=== PATIENT | female | born 1950 | race Caucasian/White ===

== ENCOUNTER 2017-05-18 23:07 | Emergency (ER) | payer MEDICARE, MEDICAID ==
[~2017-05-18] VITALS: Ht 160 cm; Wt 65.8 kg
[~2017-05-18 23:07] MED LIST: ASPIR 8181 MG ORAL; ASPIRIN325 MG ORAL; ATORVASTATIN CA80 MG ORAL; BENAZEPRIL HCL20 MG ORAL; DIABETA5 MG ORAL; IBUPROFEN600 MG ORAL; KEFLEX500 MG ORAL; METFORMIN HCL500 M1 ORAL; METOPROLOL TART50 MG ORAL; NORCO 5-325 TA1 EACH ORAL; OMEPRAZOLE20 M2 ORAL; PLAVIX75 MG ORAL; PROTONIX40 MG ORAL; SUCRALFATE1 GM ORAL; TENORMIN50 MG ORAL
[2017-05-18 23:20] VITALS: BP 153/70
[2017-05-19 00:20] VITALS: BP 153/70
--- NOTE | 2017-05-19 00:32 | Emergency Room Report ---
History of Present Illness General Chief Complaint: Upper Extremity Injury Source: Patient Present Illness HPI 66YOF with hematoma to left hand over middle knuckle after "slightly hitting it on door" earlier. Denies pain States swelling got bigger than stabilized On plavix Denies reduced ROM of hand, fingers Denies numbness, tingling of hand, fingers Allergies: Coded Allergies: CIMETIDINE (Verified Allergy, Mild, SWELLING, 04/12/13) POLYETHYLENE GLYCOL (Unverified Adverse Reaction, Severe, TACHYCARDIA, 03/26) POLYETHYLENE GLYCOL 3350 (Unverified Adverse Reaction, Severe, TACHYCARDIA , 03/26/15) POTASSIUM CHLORIDE (Unverified Adverse Reaction, Severe, TACHYCARDIA, ) SODIUM (Unverified Adverse Reaction, Severe, TACHYCARDIA, 03/26/15) SODIUM BICARBONATE (Unverified Adverse Reaction, Severe, TACHYCARDIA, ) SODIUM SULFATE (Unverified Adverse Reaction, Severe, TACHYCARDIA, 03/26/15) SODIUM SULFATE ANHYDROUS (Unverified Adverse Reaction, Severe, TACHYCARDIA , 03/26/15) Patient History Past Medical History: see triage record, old chart reviewed Past Surgical History: none Pertinent Family History: none Social History: Denies: alcohol use, drug use, smoking Now: No Immunizations: UTD Reviewed Nursing Documentation: PMH: Agreed, PSxH: Agreed Nursing Documentation-PMH Hx Cardiac Problems: Yes - 4stents Hx Hypertension: Yes Hx Diabetes: Yes Hx Cancer: Yes - colon ca Review of Systems All Other Systems: negative except mentioned in HPI Physical Exam Vital Signs Date Time Temp Pulse Resp B/P Pulse Ox O2 Delivery O2 Flow Rate FiO2 05/18/17 23:18 98.1 72 16 153/70 97 Room Air Sp02 EP Interpretation: reviewed, normal General Appearance: normal inspection, well appearing, no apparent distress, alert, GCS 15, non-toxic Head: normocephalic, atraumatic Eyes: bilateral eye EOMI, bilateral eye PERRL ENT: normal ENT inspection, hearing grossly normal, normal voice Neck: normal inspection, full range of motion, supple, no bony tend Respiratory: normal inspection, lungs clear, normal breath sounds, no respiratory distress, no retraction, no wheezing Cardiovascular #1: regular rate, rhythm, no edema Gastrointestinal: normal inspection, normal bowel sounds, non tender, soft, no guarding, no hernia Genitourinary: no CVA tenderness Musculoskeletal: other - Left hand: 3cm hematoma overlyign dorsal aspect of middle knuckle. Mild ttp to hematoma but no palpable ttp to hand or fingers. ROM intact. 2++ distal radius pulse Neurologic: normal inspection, alert, oriented x3, responsive, customer service officer III-XII nml as tested, motor strength/tone normal, speech normal Psychiatric: normal inspection, judgement/insight normal, mood/affect normal Skin: normal inspection, normal color, no rash Medical Decision Making Diagnostic Impression: Primary Impression: Hematoma and contusion ER Course Extremity hematoma No compartment syndrome Xray negative for fx Advised pressure, ICE Given TREY Has PMD followup in 2 days Advised return to ER for worsening symptoms Last Vital Signs Date Time Temp Pulse Resp B/P Pulse Ox O2 Delivery O2 Flow Rate FiO2 05/18/17 23:18 98.1 72 16 153/70 97 Room Air Status: improved Disposition: HOME, SELF-CARE Condition: Improved Patient Instructions: Hand Contusion, [id number] Additional Instructions: - Apply ice and pressure to hand 3x a day - Continue taking Plavix - Follow up with your primary doctor tomorrow TAYLOR CHAPARRO M.D. May 19, 2017 00:32
--- NOTE | 2017-05-19 11:50 | Diagnostic Imaging Report ---
Indications: PAIN Technique: 3 views of the left hand Comparison: None Findings: No acute fractures. No dislocations. Joint spaces are preserved. No radiopaque foreign body. Normal mineralization. Impression: No acute process
== END 2017-05-19 00:20 | disposition home or self-care (01) ==
LOC: EMR 23:38
DX: S60.222A Contusion of left hand, initial encounter (principal); W22.8XXA Striking against or struck by other objects, initial encounter; Y92.89 Other specified places as the place of occurrence of the external cause
CPT/HCPCS: 99283

== ENCOUNTER 2019-03-05 17:58 | Emergency (ER) | payer MEDICARE, MEDICAID ==
[~2019-03-05] VITALS: Ht 152.4 cm; Wt 61.2 kg
--- NOTE | 2019-03-05 18:02 | NUR ---
ED Nurse Note: Pt came into the ER w/ complaints of back pain x 2 days. According to pt, she was bending down and that is when the pain started. Pt is complaining of 10/10 pain. Non radiating. Pt is A + O x4. Ambulatory. Skin warm to touch.
[2019-03-05 18:15] VITALS: BP 171/55
--- NOTE | 2019-03-05 18:20 | Emergency Room Report ---
History of Present Illness General Chief Complaint: Lower Back Pain or Injury Source: Patient Present Illness HPI 68-year-old female p/w back pain Patient states pain started when he bent down to get something. Pain is localized to left lower back, sharp in nature, radiating down leg. Movement worsens pain. She did take Tylenol around 1 PM with some relief. No numbness or weakness or legs. She has had this left- sided back pain in the past No other trauma Patient has experienced this similar pain in the past. Denies trauma. Denies lower extremity weakness/numbness, no bowel/bladder retention or incontinence, saddle anesthesia. Denies fever, chills, abdominal pain, n/v, dysuria/hematuria. No history of IVDA Allergies: Coded Allergies: CIMETIDINE (Verified Allergy, Mild, SWELLING, 04/12/13) POLYETHYLENE GLYCOL (Unverified Adverse Reaction, Severe, TACHYCARDIA, 03/26) POLYETHYLENE GLYCOL 3350 (Unverified Adverse Reaction, Severe, TACHYCARDIA , 03/26/15) POTASSIUM CHLORIDE (Unverified Adverse Reaction, Severe, TACHYCARDIA, ) SODIUM (Unverified Adverse Reaction, Severe, TACHYCARDIA, 03/26/15) SODIUM BICARBONATE (Unverified Adverse Reaction, Severe, TACHYCARDIA, ) SODIUM SULFATE (Unverified Adverse Reaction, Severe, TACHYCARDIA, 03/26/15) SODIUM SULFATE ANHYDROUS (Unverified Adverse Reaction, Severe, TACHYCARDIA , 03/26/15) Patient History Past Medical History: see triage record Past Surgical History: none Pertinent Family History: none Reviewed Nursing Documentation: PMH: Agreed; PSxH: Agreed Nursing Documentation-PMH Past Medical History: No History, Except For Hx Cardiac Problems: Yes - 11 stents Hx Hypertension: Yes Hx Diabetes: Yes Hx Cancer: Yes - colon ca,left breast ca Review of Systems All Other Systems: negative except mentioned in HPI Physical Exam Vital Signs Date Time Temp Pulse Resp B/P (MAP) Pulse Ox O2 Delivery O2 Flow Rate FiO2 03/05/19 18:09 97.5 67 12 100 Room Air 03/05/19 18:15 171/55 Sp02 EP Interpretation: reviewed, normal General Appearance: alert, GCS 15, non-toxic, moderate distress Head: normocephalic, atraumatic Eyes: bilateral eye normal inspection, bilateral eye PERRL, bilateral eye EOMI ENT: normal ENT inspection, normal pharynx, normal voice, moist mucus membranes Neck: normal inspection, full range of motion, supple Respiratory: normal inspection, lungs clear, normal breath sounds, no respiratory distress, no retraction, no wheezing, speaking full sentences, chest symmetrical Cardiovascular #1: normal inspection, regular rate, rhythm, normal capillary refill Cardiovascular #2: 2+ radial (R), 2+ radial (L) Gastrointestinal: normal inspection, non tender, soft, non-distended, no guarding Musculoskeletal: other - Left lower lumbar paraspinal tenderness no midline tenderness Neurologic: normal inspection, alert, oriented x3, responsive, motor strength/ tone normal, sensory intact, normal gait, speech normal Psychiatric: normal inspection, judgement/insight normal, memory normal Skin: normal inspection, normal color, no rash, warm/dry, well hydrated, normal turgor Medical Decision Making Diagnostic Impression: Primary Impression: Back pain ER Course 68-year-old female p/w back pain DDX: Likely musculoskeletal back pain vs. muscular strain vs. sciatica Serious diagnoses such as cord compression, epidural abscess is unlikely in this patient given the clinical scenario and abscess of neurological symptoms or findings. Patient appears nontoxic. Plan: Tylenol and Robaxin and x-ray ER course: Patient has remained nontoxic appearing and ambulatory in the ED. Pain improved w/ medications she wants her hgb checked as well as magnesium. mg slightly low but she is on meds Disposition: Patient will be discharged to home with prescription of robaxin. Patient cautioned of the effects of robaxin including possible impairment of physical or mental abilities. Patient was instructed to refrain from operating machinery or driving. Patient is also cautioned on the GI effects of motrin and to take sparingly. Patient verbalized understanding. Strict precautions discussed with patient on when to emergently return to the ED which includes severe/worsening back pain, leg weakness/numbness, urinary retention/incontinence, fever or chills, which may indicate severe illness. Patient is to follow up with their PMD within 5 days. Patient agrees with plan. Please note that this Emergency Department Report was dictated using [employer] operator technology software, occasionally this can lead to erroneous entry secondary to interpretation by the dictation equipment. Laboratory Tests Test 03/05/19 19:25 03/05/19 19:55 Sodium Level 130 MMOL/L (136-145) L Potassium Level 4.0 MMOL/L (3.5-5.1) Chloride Level 98 MMOL/L (98-107) Carbon Dioxide Level 30 MMOL/L (21-32) Anion Gap 2 mmol/L (5-15) L Blood Urea Nitrogen 21 mg/dL (7-18) H Creatinine 1.2 MG/DL (0.55-1.30) Estimate Glomerular Filtration Rate 44.8 mL/min (>60) Glucose Level 110 MG/DL (74-106) H Calcium Level 10.3 MG/DL (8.5-10.1) H Magnesium Level 1.5 MG/DL (1.8-2.4) L Total Bilirubin 0.7 MG/DL (0.2-1.0) Aspartate Amino Transferase (AST) 16 U/L (15-37) Alanine Aminotransferase (ALT) 33 U/L (12-78) Alkaline Phosphatase 52 U/L (46-116) Total Protein 7.4 G/DL (6.4-8.2) Albumin 3.9 G/DL (3.4-5.0) Globulin 3.5 g/dL Albumin/Globulin Ratio 1.1 (1.0-2.7) White Blood Count 7.4 K/UL (4.8-10.8) Red Blood Count 3.77 M/UL (4.20-5.40) L Hemoglobin 10.9 G/DL (12.0-16.0) L Hematocrit 32.1 % (37.0-47.0) L Mean Corpuscular Volume 85 FL (80-99) Mean Corpuscular Hemoglobin 28.8 PG (27.0-31.0) Mean Corpuscular Hemoglobin Concent 33.9 G/DL (32.0-36.0) Red Cell Distribution Width 11.1 % (11.6-14.8) L Platelet Count 234 K/UL (150-450) Mean Platelet Volume 6.0 FL (6.5-10.1) L Neutrophils (%) (Auto) 57.6 % (45.0-75.0) Lymphocytes (%) (Auto) 28.5 % (20.0-45.0) Monocytes (%) (Auto) 8.9 % (1.0-10.0) Eosinophils (%) (Auto) 3.9 % (0.0-3.0) H Basophils (%) (Auto) 1.1 % (0.0-2.0) Last Vital Signs Date Time Temp Pulse Resp B/P (MAP) Pulse Ox O2 Delivery O2 Flow Rate FiO2 03/05/19 18:15 97.6 61 11 171/55 100 Room Air Disposition: HOME, SELF-CARE Condition: Stable Scripts Methocarbamol* (ROBAXIN-750*) 750 Mg Tablet 750 MG PO QID, #28 TAB 0 Refills Prov: Alexx Solis M.D. 03/05/19 Patient Instructions: Back Pain, Adult Alexx Solis M.D. March 05, 2019 18:20
[2019-03-05] MEDS ORDERED: Methocarbamol 750mg tab ORAL ONE (18:30)
[2019-03-05] MEDS ORDERED: Acetaminophen 500mg (ES) tab ORAL ONE (18:30)
[2019-03-05] MEDS ORDERED: ROBAXIN-750750 MG PO (18:33)
--- NOTE | 2019-03-05 18:49 | NUR ---
ED Nurse Note: Pt came back from radiology.
--- NOTE | 2019-03-05 18:57 | NUR ---
HAND-OFF: Report given to BLAIRE Cerrato.
[2019-03-05 20:10] LABS: BASOPHILS % (AUTO) 1.1 % (0.0-2.0); EOSINOPHILS % (AUTO) 3.9 % (0.0-3.0); HEMATOCRIT 32.1 % (37.0-47.0); HEMOGLOBIN 10.9 G/DL (12.0-16.0); LYMPHOCYTES % (AUTO) 28.5 % (20.0-45.0); MEAN CORPUSCULAR VOLUME 85 FL (80-99); MONOCYTES % (AUTO) 8.9 % (1.0-10.0); NEUTROPHILS % (AUTO) 57.6 % (45.0-75.0); PLATELET COUNT 234 K/UL (150-450); RED BLOOD COUNT 3.77 M/UL (4.20-5.40); RED CELL DISTRIBUTION WIDTH 11.1 % (11.6-14.8); WHITE BLOOD COUNT 7.4 K/UL (4.8-10.8)
[2019-03-05 20:21] LABS: ANION GAP 2 mmol/L (5-15); BLOOD UREA NITROGEN 21 mg/dL (7-18); CALCIUM 10.3 MG/DL (8.5-10.1); CARBON DIOXIDE 30 MMOL/L (21-32); CHLORIDE 98 MMOL/L (98-107); CREATININE 1.2 MG/DL (0.55-1.30); SODIUM 130 MMOL/L (136-145)
[2019-03-05 20:26] LABS: ALANINE AMINOTRANSFERASE 33 U/L (12-78); ALBUMIN 3.9 G/DL (3.4-5.0); ALBUMIN/GLOBULIN RATIO 1.1 (1.0-2.7); ALKALINE PHOSPHATASE 52 U/L (46-116); ASPARTATE AMINO TRANSFERASE 16 U/L (15-37); BILIRUBIN,TOTAL 0.7 MG/DL (0.2-1.0)
[2019-03-05 20:45] VITALS: BP 171/55
--- NOTE | 2019-03-05 20:45 | NUR ---
ED Nurse Note: Pt cleared by health care Provider for discharge. DC instructions/prescription was given and explained to pt and verbalized understanding of teachings. All medical deviecs such as ID band removed. Pt is AAO x4, ambulatory and left with all personal belongings.
--- NOTE | 2019-03-06 13:54 | Diagnostic Imaging Report ---
Indication: Back pain Comparison: None Findings: 3 views of the lumbar spine were obtained. No acute fracture or malalignment is identified. Vertebral body heights and disk spaces are well maintained. Posterior elements are unremarkable. Aorta is moderately calcified. Impression: No acute findings.
== END 2019-03-05 20:45 | disposition home or self-care (01) ==
LOC: EMR 19:01
DX: M54.5 Low back pain (principal); Z88.8 Allergy status to other drugs, medicaments and biological substances; I10 Essential (primary) hypertension; E11.9 Type 2 diabetes mellitus without complications; Z85.038 Personal history of other malignant neoplasm of large intestine; Z85.3 Personal history of malignant neoplasm of breast; Z95.5 Presence of coronary angioplasty implant and graft
CPT/HCPCS: 36415; 72020; 80053; 83735; 85025; 99283